=== PATIENT | male | born 1955 | race Caucasian/White ===

== ENCOUNTER 2018-06-10 05:59 | Emergency (ER) | payer OTHER ==
[2018-06-10 06:34] VITALS: BMI 22.7
--- NOTE | 2018-06-10 07:08 | ED PDOC ---
Arrival/HPI - General Chief Complaint: High Blood Pressure Time Seen by Provider: 06/10/18 07:01 Historian: Patient - History of Present Illness Narrative History of Present Illness (Text): 06/10/18 07:05 63 year old male, whose past medical history includes hypertension, presents to the emergency department with lightheadedness and elevated blood pressure, since today. 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 Patient states his blood pressure was 150/110 at the time. Patient states he keeps getting lightheaded when he gets up. Patient denies any chest pain, headache, shortness of breath, sore throat, cough, or any other complaints. PMD: Dr Meier Time/Duration: Prior to Arrival Symptom Onset: Gradual Symptom Course: Unchanged Activities at Onset: Light Context: Work Past Medical History - Provider Review Nursing Documentation Reviewed: Yes - Cardiac Hx Hypertension: Yes - Psychiatric Hx Substance Use: No - Anesthesia Hx Anesthesia: No Hx Anesthesia Reactions: No Hx Malignant Hyperthermia: No Family/Social History - Physician Review Nursing Documentation Reviewed: Yes Family/Social History: No Known Family HX Smoking Status: Never Smoked Hx Alcohol Use: No Hx Substance Use: No Allergies/Home Meds Allergies/Adverse Reactions: Allergies No Known Allergies Allergy (Verified 06/10/18 06:29) Review of Systems - Physician Review All systems were reviewed & negative as marked: Yes - Review of Systems ENT: absent: Sore Throat Respiratory: absent: SOB, Cough Cardiovascular: absent: Chest Pain Neurological: Dizziness (lightheadedness). absent: Headache Physical Exam Vital Signs Reviewed: Yes Vital Signs Temp Pulse Resp BP Pulse Ox 06/10/18 06:35 85 18 132/84 100 06/10/18 06:05 98.5 F 83 18 136/91 H 98 Temperature: Afebrile Blood Pressure: Hypertensive Pulse: Regular Respiratory Rate: Normal Appearance: Positive for: Well-Appearing, Non-Toxic, Comfortable Pain Distress: None Mental Status: Positive for: Alert and Oriented X 3 - Systems Exam Head: Present: Atraumatic, Normocephalic Pupils: Present: PERRL Extroacular Muscles: Present: EOMI Conjunctiva: Present: Normal Mouth: Present: Moist Mucous Membranes Neck: Present: Normal Range of Motion Respiratory/Chest: Present: Clear to Auscultation, Good Air Exchange. No: Respiratory Distress, Accessory Muscle Use Cardiovascular: Present: Regular Rate and Rhythm, Normal S1, S2. No: Murmurs Abdomen: No: Tenderness, Distention, Peritoneal Signs Back: Present: Normal Inspection Upper Extremity: Present: Normal Inspection. No: Cyanosis, Edema Lower Extremity: Present: Normal Inspection. No: Edema Neurological: Present: GCS=15, CN II-XII Intact, Speech Normal Skin: Present: Warm, Dry, Normal Color. No: Rashes Psychiatric: Present: Alert, Oriented x 3, Normal Insight, Normal Concentration Medical Decision Making ED Course and Treatment: 06/10/18 07:09 Impression: 63 year old male presents with lightheadedness and elevated blood pressure ro metabolci infectious cardiac etiology Plan: -- EKG -- Cardiac Chem -- CBC -- Urinalysis -- Reassess and disposition Prior Visits: Notes and results from previous visits were reviewed. Progress Notes: 06/10/18 07:12 EKG reviewed by me, shows: Normal sinus rhythm @ 88bpm No ST or T wave changes 06/10/18 11:34 labs neg. no cardipulm complaints neuro intact. steady gait. feels imrpoved. asking for dc. advise outpt fu and close return precautions. pt verbalizes understadnign. - Scribe Statement The provider has reviewed the documentation as recorded by the Scribe Art Rashid Provider Scribe Attestation: All medical record entries made by the Scribe were at my direction and personally dictated by me. I have reviewed the chart and agree that the record accurately reflects my personal performance of the history, physical exam, me dical decision making, and the department course for this patient. I have also personally directed, reviewed, and agree with the discharge instructions and disposition. Disposition/Present on Arrival - Present on Arrival Any Indicators Present on Arrival: No History of DVT/PE: No History of Uncontrolled Diabetes: No Urinary Catheter: No History of Decub. Ulcer: No History Surgical Site Infection Following: None - Disposition Have Diagnosis and Disposition been Completed?: Yes Diagnosis: Dizziness Disposition: HOME/ ROUTINE Disposition Time: 09:40 Condition: STABLE Discharge Instructions (ExitCare): Dizziness, Nonvertigo, (DC) Additional Instructions: return to er with worsening symptoms or concerns. Referrals: [facility] [Outside] - Follow up with primary [facility] at [facility] [place] [Outside] - Follow up with primary Matt Flor DO [Staff Provider] - Follow up with primary Jmua Foote MD [Staff Provider] - Follow up with primary Trish Enriquez MD [Staff Provider] - Follow up with primary Forms: [employer] (American), WORK NOTE
[2018-06-10 08:56] LABS: BASO # 0.04 K/mm3 (0.0-2.0); BASO % 0.6 % (0.0-3.0); EOS # 0.1 (0.0-0.7); EOS % 1.5 % (1.5-5.0); GRAN # 5.07 (1.4-6.5); GRAN % 74.3 % (50.0-68.0); LYMPH # 1.3 (1.2-3.4); LYMPH % 19.5 % (22.0-35.0); MEAN CELL VOLUME 88.6 fl (80.0-105.0); MEAN CORPUSCULAR HGB CONC 31.6 g/dl (31.0-37.0); MEAN PLATELET VOLUME 9.3 fl (7.0-11.0); MONO # 0.3 (0.1-0.6); MONO % 4.1 % (1.0-6.0); RED CELL DISTRIBUTION WIDTH 13.8 % (11.5-14.5); WHITE BLOOD COUNT 6.8 10^3/uL (4.5-11.0)
[2018-06-10 09:03] LABS: INR 1.01; PARTIAL THROMBOPLASTIN TIME 28.9 Seconds (25.1-36.5); PROTHROMBIN TIME 11.6 SECONDS (9.4-12.5)
[2018-06-10 09:04] LABS: ALB/GLOB RATIO 1.4 (1.1-1.8); ALBUMIN 4.6 g/dL (3.0-4.8); ALT/SGPT 25 U/L (7-56); AST/SGOT 36 U/L (17-59); BLOOD UREA NITROGEN 17 mg/dL (7-21); CALCIUM 9.5 mg/dL (8.4-10.5); GFR NON-AFRICAN AMERICAN > 60
[2018-06-10 09:15] LABS: TROPONIN I < 0.01 ng/mL
[2018-06-10 10:32] VITALS: BP 129/84; PULSE 76; RESP 18; TEMP 98.2
[2018-06-10 10:36] VITALS: O2SAT 98
--- NOTE | 2018-06-10 20:59 | CARD ---
APPROVED REPORT Date of service: 06/10/2018 EKG Measurement Heart [id number] <Conclusion> Normal sinus rhythm Normal ECG
== END 2018-06-10 10:42 | disposition home or self-care (01) ==
LOC: ED 05:59
DX: R42 Dizziness and giddiness (principal); I10 Essential (primary) hypertension

== ENCOUNTER 2018-07-09 05:53 | Outpatient (CLI) | payer OTHER | END 2018-07-09 05:54 | disposition home or self-care (01) | LOC: OPLAB 05:53 ==

== ENCOUNTER 2018-07-22 06:22 | Outpatient (CLI) | payer OTHER | END 2018-07-22 06:23 | disposition home or self-care (01) | LOC: RAD 06:22 ==